=== PATIENT | male | born 1975 | race Caucasian/White ===

== ENCOUNTER → 2024-02-23 13:12 | Outpatient (REF) | payer SELFPAY | LOC: RAD 13:12 | PROVIDERS: ATTENDING PHYSICIAN Internal Medicine | DX: E78.2 Mixed hyperlipidemia (principal); Z82.49 Family history of ischemic heart disease and other diseases of the circulatory system | CPT/HCPCS: 75571 ==

== ENCOUNTER 2025-02-18 13:51 | Outpatient (RCR) | payer BC, SELFPAY ==
[2025-02-18 14:05] LABS: Hematocrit 45.2 % (39.0-52.0); Hemoglobin 15.7 g/dL (13.0-18.0); Mean Corp Hgb Conc. 34.7 g/dL (33.0-37.0); Mean Corpuscular Volume 90.6 fL (80.0-94.0); Platelet Count 284 10^3/uL (130-400); Red Cell Dist. Width 12.5 % (11.5-14.5)
[2025-02-18 14:35] VITALS: BP 146/80
[2025-02-18 15:07] VITALS: BP 137/85; BP 160/99
== END 2025-02-19 09:54 | disposition home or self-care (01) ==
LOC: OID 13:51
PROVIDERS: ATTENDING PHYSICIAN Urology
DX: D75.1 Secondary polycythemia (principal); E29.1 Testicular hypofunction; G91.2 (Idiopathic) normal pressure hydrocephalus
CPT/HCPCS: 36415; 85025